=== PATIENT | female | born 1995 | race Caucasian/White ===

== ENCOUNTER 2021-10-16 22:09 | Emergency (ER) | payer OTHER ==
[~2021-10-16] VITALS: Ht 160 cm; Wt 84.4 kg
[2021-10-16 22:14] VITALS: BP_SYST 165
--- NOTE | 2021-10-16 22:40 | NUR ---
PT IN BED 8. ASSUMED CARE OF PT AT THIS TIME. PT A&OX4, FEELS "HOT" AND A LITTLE ANXIOUS. ABLE TO TALK WITH PT. HAVE HER LAY ON BED AND PT BECAME MORE CAME. PT PLACED IN GOWN. UPDATED PT ON POC WITH FULL RETURNED VERBAL UNDERSTANDING. WILL FOLLOW THROUGH WITH ORDERS.
[2021-10-16 22:43] LABS: BILIRUBIN,URINE NEGATIVE (NEGATIVE); BLOOD, URINE NEGATIVE (NEGATIVE); CLARITY/URINE CLEAR (CLEAR); COLOR,URINE YELLOW (YELLOW); GLUCOSE,URINE NEGATIVE (NEGATIVE); KETONES,URINE NEGATIVE (NEGATIVE); LEUKOCYTE ESTERASE ,URINE TRACE (NEGATIVE); NITRITE, URINE NEGATIVE (NEGATIVE); PH,URINE 5.5 (5.0-8.0); PROTEIN URINE NEGATIVE (NEGATIVE); UROBILINOGEN,URINE 0.2 (0.2-1.0)
[2021-10-16 22:54] LABS: BACTERIA,URINE FEW /HPF (None Seen); RBC,URINE 0-3 /HPF (0-3); WBC,URINE 0-3 /HPF (0-3)
[2021-10-16] MEDS ORDERED: KETOROLAC TROMETHAMINE 30 MG VIAL IVP ONE (23:15)
[2021-10-16] MEDS ORDERED: NACL 0.9% 1,000 ML IV ONE (23:15)
[2021-10-17 00:25] LABS: EOSINOPHILS # (AUTO) 0.1 K/uL (0.0-0.4); HEMOGLOBIN 14.8 g/dL (12.0-16.0)
[2021-10-17 00:27] LABS: POTASSIUM 3.6 mmol/L (3.5-5.1)
--- NOTE | 2021-10-17 00:30 | NUR ---
PT RESTING, CALM. NO S/S OF DISTRESS NOTED AT THIS TIME.
[2021-10-17 00:33] LABS: ALBUMIN 3.7 g/dL (3.4-4.8); BASOPHILS % (AUTO) 0.6 % (0.0-2.0); EOSINOPHILS % (AUTO) 0.7 % (0.0-4.0); HEMATOCRIT 42.3 % (36-48); LYMPHOCYTES # (AUTO) 2.3 K/uL (1.0-5.5); LYMPHOCYTES % (AUTO) 27.2 % (20.5-51.5); MEAN CORPUSCULAR HEMOGLOBIN 31 pg (27-31); MEAN CORPUSCULAR HGB CONC 35 % (32-36); MEAN CORPUSCULAR VOLUME 88 fL (79.0-98.0); MONOCYTES # (AUTO) 0.7 K/uL (0.0-1.0); NEUTROPHILS # (AUTO) 5.4 K/uL (1.8-7.7); NEUTROPHILS % (AUTO) 63.5 % (40.0-70.0); PLATELET COUNT (AUTO) 189 K/uL (130-430); RED BLOOD CELL COUNT(AUTO) 4.82 MIL/uL (4.2-6.2); RED CELL DISTRIBUTION WIDTH 12.5 % (9.0-15.0); TOTAL BILIRUBIN 0.5 mg/dL (0.0-1.0); WHITE BLOOD COUNT (AUTO) 8.5 K/uL (4.8-10.8)
--- NOTE | 2021-10-17 01:10 | NUR ---
IV ESTABLISHED. PT TOLERATED WELL. PT UPDATED ON POC WITH FULL RETURNED VERBAL UNDERSTANDING. WILL FOLLOW THROUGH WITH ALL ORDERS.
[2021-10-17] MEDS ORDERED: KETOROLAC TROMETHAMINE 30 MG VIAL ONE (01:30)
--- NOTE | 2021-10-17 02:10 | NUR ---
PT RESTING, SIGNIFICANT OTHER AT BEDSIDE. AWAITING RESULTS. PT IN POSITION OF COMFORT. WILL CONTINUE TO MONITOR. BLANKET PROVIDED.
[2021-10-17 03:19] VITALS: BP_SYST 122
--- NOTE | 2021-10-17 03:19 | NUR ---
Patient given written and verbal discharge instructions by Dr. Sosa and verbalizes understanding. ER MD discussed with patient the results and treatment provided. Patient in stable condition. ID arm band removed. IV catheter removed intact and dressing applied, no active bleeding. Rx of given. Patient educated on pain management and to follow up with PMD. Opportunity for questions provided and answered. Medication side effect fact sheet provided. Pt ambulates to exit with steady gait.
== END 2021-10-17 03:19 | disposition home or self-care (01) ==
LOC: SED 22:09
DX: R10.30 Lower abdominal pain, unspecified (principal)
CPT/HCPCS: 36415; 74176; 76376; 80053; 81000; 81025; 84702; 85025; 87086; 87210; 93005; 96361; 96374; 99285; J1885; J7030